=== PATIENT | male | born 1940 | race Caucasian/White ===

== ENCOUNTER 2025-01-04 09:21 | Observation (INO) ==
[2025-01-03 17:20] LABS: Basophils # (Auto) 0.03 K/mcL (0.00-0.30); Basophils % (Auto) 0.6 % (0.0-2.0); Eosinophils # (Auto) 0.11 K/mcL (0.00-0.70); Eosinophils % (Auto) 2.0 % (0.0-7.0); Hematocrit 33.2 % (40.1-51.0); Hemoglobin 10.5 g/dL (13.7-17.5); Lymphocytes # (Auto) 0.86 K/mcL (1.50-4.80); Lymphocytes % (Auto) 16.0 % (15.5-49.0); Mean Corpuscular HGB Conc 31.6 g/dL (31.0-36.0); Monocytes # (Auto) 0.53 K/mcL (0.10-0.90); Monocytes % (Auto) 9.9 % (1.0-12.0); Neutrophils % (Auto) 70.6 % (38.0-78.0); Platelet Count 307 K/mcL (140-440); RBC 3.44 M/mcL (4.63-6.08); WBC 5.4 K/mcL (4.5-11.0)
[2025-01-03 17:54] LABS: Anion Gap 9.0 (8.0-16.0); Blood Urea Nitrogen 25 mg/dL (8-23); Calcium 8.5 mg/dL (8.6-10.4); Carbon Dioxide 28 mmol/L (22-30); Chloride 103 mmol/L (96-108); Glucose 103 mg/dL (70-105); Potassium 4.5 mmol/L (3.3-5.1); Sodium 140 mmol/L (133-145)
[2025-01-03 19:21] LABS: INR 1.3 (0.9-1.1); Prothrombin Time 17.3 sec (11.9-14.5)
[~2025-01-04 09:21] MED LIST: DEXAMETHASONE 10 MG/ML VIAL ONE; GLYCOPYRROLATE 0.2 MG/ML VIAL IV ONE; LIDOCAINE 2% PF 5 ML VIAL ONE; MAGNESIUM SULFATE 2 GM/50 ML BAG IV ONE; ONDANSETRON 4 MG/2 ML VIAL ONE; PROPOFOL 200 MG/20 ML VIAL IV ONE; SUCCINYLCHOLINE 200 MG/10 ML VIAL IV ONE; fentaNYL 100 MCG/2 ML VIAL ONE
[2025-01-04] MEDS ORDERED: FAMOTIDINE/PF 20 MG/2 ML VIAL IV ONE (11:23)
[2025-01-04] MEDS: ceFAZolin 2 GM in DEXTROSE 5% IN WATER 50 ML IV SCH (11:37)
[2025-01-04] MEDS ORDERED: ePHEDrine 50 MG/5 ML SYRINGE (ANEST) IV ONE (11:53)
[2025-01-04] MEDS ORDERED: PHENYLephrine 1 MG/10 ML SYRINGE (ANEST) ONE (11:54)
[2025-01-04] MEDS ORDERED: ROCURONIUM 10 MG/ML ML IV ONE (12:04)
[2025-01-04] MEDS ORDERED: SUGAMMADEX SODIUM 200 MG/2 ML VIAL IV ONE (12:06)
[2025-01-04] MEDS ORDERED: VASOPRESSIN 20 UNIT/ML VIAL ONE (12:09)
[2025-01-04] MEDS ORDERED: 0.9 % SODIUM CHLORIDE 100 ML IV ONE (12:09)
[2025-01-04] MEDS ORDERED: ONDANSETRON 4 MG/2 ML VIAL IV PRN ×3 (12:15→16:23)
[2025-01-04] MEDS ORDERED: HYDROmorphone 0.5 MG/0.5 ML SYRINGE IV PRN (12:15)
[2025-01-04] MEDS ORDERED: BENZOCAINE/MENTHOL 1 LOZENGE PO PRN (12:15)
[2025-01-04] MEDS ORDERED: LACTATED RINGERS 250 ML IV PRN (12:15)
[2025-01-04] MEDS ORDERED: fentaNYL 100 MCG/2 ML VIAL IV PRN (12:15)
[2025-01-04] MEDS ORDERED: METHOCARBAMOL 1,000 MG/10 ML VIAL IV PRN (12:15)
[2025-01-04] MEDS ORDERED: IPRATROPIUM/ALBUTEROL 3 ML AMPUL.NEB NEB PRN (12:15)
[2025-01-04] MEDS ORDERED: HYDROmorphone 0.5 MG/0.5 ML SYRINGE ONE (12:49)
[2025-01-04] MEDS: BUPIVACAINE W/EPI 0.5% 50 ML VIAL IJ ONE (13:00)
[2025-01-04] MEDS: ACETAMINOPHEN 1,000 MG/100 ML BAG IV ONE (13:14)
[2025-01-04] MEDS: NALOXONE HCL 0.4 MG/ML VIAL IV PRN (14:20)
[2025-01-04] MEDS: NALOXONE HCL 0.4 MG/ML VIAL IV ONE (15:59)
[2025-01-04] MEDS: NALOXONE HCL 0.4 MG/ML VIAL ONE (16:00)
[2025-01-04] MEDS ORDERED: SENNOSIDES 1 TABLET PO PRN (16:23)
[2025-01-04] MEDS ORDERED: NALOXONE HCL 0.4 MG/ML VIAL IV PRN (16:23)
[2025-01-04] MEDS ORDERED: ACETAMINOPHEN 650 MG/65 ML BAG IV PRN (16:23)
[2025-01-04 17:03] LABS: Basophils # (Auto) 0.01 K/mcL (0.00-0.30); Basophils % (Auto) 0.2 % (0.0-2.0); Eosinophils # (Auto) 0.01 K/mcL (0.00-0.70); Eosinophils % (Auto) 0.2 % (0.0-7.0); Hematocrit 32.7 % (40.1-51.0); Hemoglobin 10.4 g/dL (13.7-17.5); Lymphocytes # (Auto) 0.25 K/mcL (1.50-4.80); Lymphocytes % (Auto) 3.8 % (15.5-49.0); Mean Corpuscular HGB Conc 31.8 g/dL (31.0-36.0); Monocytes # (Auto) 0.09 K/mcL (0.10-0.90); Monocytes % (Auto) 1.4 % (1.0-12.0); Neutrophils % (Auto) 93.9 % (38.0-78.0); Platelet Count 224 K/mcL (140-440); RBC 3.36 M/mcL (4.63-6.08); WBC 6.5 K/mcL (4.5-11.0)
[2025-01-04 17:16] LABS: ALT/SGPT 14 U/L (<40); AST/SGOT 19 U/L (<40); Albumin 3.5 gm/dL (3.2-5.2); Albumin/Globulin Ratio 1.3 (1.0-2.3); Alkaline Phosphatase 98 U/L (39-117); Anion Gap 11.0 (8.0-16.0); Bilirubin,Direct < 0.2 mg/dL (0-0.3); Bilirubin,Total 0.3 mg/dL (0.1-1.0); Blood Urea Nitrogen 24 mg/dL (8-23); Calcium 8.5 mg/dL (8.6-10.4); Carbon Dioxide 27 mmol/L (22-30); Chloride 102 mmol/L (96-108); Globulin 2.7 gm/dL (2.2-3.7); Glucose 142 mg/dL (70-105); Phosphorous 3.9 mg/dL (2.5-4.5); Potassium 4.1 mmol/L (3.3-5.1); Sodium 140 mmol/L (133-145); Triglycerides 44 mg/dL (<150); Uric Acid 7.1 mg/dL (2.5-8.0)
[2025-01-04] MEDS: 0.9 % SODIUM CHLORIDE 10 ML SYRINGE IV SCH ×2 (18:25→22:17)
[2025-01-04] MEDS: LACTATED RINGERS 1,000 ML IV SCH (18:25)
[2025-01-04] MEDS: NALOXONE HCL 0.4 MG/ML VIAL IV SCH (18:25)
[2025-01-04] MEDS: HEPARIN 5,000 UNIT/ML VIAL SQ SCH (21:56)
[2025-01-04] MEDS: PROPAFENONE 150 MG TABLET PO SCH (22:17)
[2025-01-04] MEDS: DOCUSATE SODIUM 100 MG CAPSULE PO SCH (22:17)
[2025-01-05 05:54] LABS: Basophils # (Auto) 0 K/mcL (0.00-0.30); Basophils % (Auto) 0 % (0.0-2.0); Eosinophils # (Auto) 0 K/mcL (0.00-0.70); Eosinophils % (Auto) 0 % (0.0-7.0); Hematocrit 30.2 % (40.1-51.0); Hemoglobin 9.6 g/dL (13.7-17.5); Lymphocytes # (Auto) 0.39 K/mcL (1.50-4.80); Lymphocytes % (Auto) 4.6 % (15.5-49.0); Mean Corpuscular HGB Conc 31.8 g/dL (31.0-36.0); Monocytes # (Auto) 0.36 K/mcL (0.10-0.90); Monocytes % (Auto) 4.3 % (1.0-12.0); Neutrophils % (Auto) 90.9 % (38.0-78.0); Platelet Count 246 K/mcL (140-440); RBC 3.11 M/mcL (4.63-6.08); WBC 8.4 K/mcL (4.5-11.0)
[2025-01-05 06:14] LABS: ALT/SGPT 12 U/L (<40); AST/SGOT 21 U/L (<40); Albumin 3.2 gm/dL (3.2-5.2); Albumin/Globulin Ratio 1.3 (1.0-2.3); Alkaline Phosphatase 91 U/L (39-117); Anion Gap 8.0 (8.0-16.0); Bilirubin,Direct < 0.2 mg/dL (0-0.3); Bilirubin,Total 0.3 mg/dL (0.1-1.0); Blood Urea Nitrogen 25 mg/dL (8-23); Calcium 8.5 mg/dL (8.6-10.4); Carbon Dioxide 27 mmol/L (22-30); Chloride 104 mmol/L (96-108); Globulin 2.4 gm/dL (2.2-3.7); Glucose 124 mg/dL (70-105); Phosphorous 4.5 mg/dL (2.5-4.5); Potassium 4.6 mmol/L (3.3-5.1); Sodium 139 mmol/L (133-145); Triglycerides 50 mg/dL (<150); Uric Acid 8.0 mg/dL (2.5-8.0)
[2025-01-05] MEDS: LOSARTAN 50 MG TABLET PO SCH (08:06)
[2025-01-05] MEDS: FOLIC ACID 1 MG TABLET PO SCH (08:15)
== END 2025-01-05 14:31 ==
LOC: ICU 09:21 → SUR 09:21
PROVIDERS: ADMIT Student in an Organized Health Care Education/Training Program; ATTEND Student in an Organized Health Care Education/Training Program